=== PATIENT | female | born 1965 | race Caucasian/White ===

== ENCOUNTER 2019-01-02 00:33 | Day surgery (SDC) | payer OTHER ==
[~2019-01-02] VITALS: Ht 170.2 cm; Wt 77.1 kg
[~2019-01-02 00:33] MED LIST: CHOL10005 PO; PAR20 PO; VORT10TA PO
[2019-01-02] MEDS ORDERED: LIDOCAINE/SOD BICARB 8.4% SYR ID ONE (06:30)
[2019-01-02] MEDS ORDERED: NORMOSOL R SOLN(*) 1000 ML BAG 1,000 ML IV PRN (06:30)
[2019-01-02 06:34] VITALS: BP 130/58
[2019-01-02] MEDS ORDERED: LIDOCAINE MPF 1% 5 ML VIAL ONE (07:11)
[2019-01-02] MEDS ORDERED: PROPOFOL EMUL(*) 10MG/ML 20 ML 40 ML ONE (07:11)
[2019-01-02 07:41] VITALS: BP 106/55
[2019-01-02 07:45] VITALS: BP 103/61
--- NOTE | 2019-01-02 07:48 | Short(Outpt) Discharge Summary ---
Discharge Summary Reason for Hosp/Final Diag: (1) Encounter for screening colonoscopy Hospital Course & Plan: 53 yo f presented for screening colonoscopy. she tolerated the procedure well and there were no complications. repeat 10 yrs. she will be discharged home when criteria met. Departure Discharge to: Home Discharge Instructions Home Meds Reported Medications Cholecalciferol (Vitamin D3) (VITAMIN D3) 1,000 Unit Tablet, 1000 UNIT PO QDAY, TAB 12/19/18 Vortioxetine Hydrobromide (Brintellix) 10 Mg Tablet, 1 TAB PO DAILY 10/16/18 Diet: Regular Activity: As Tolerated Special Instructions: repeat colonoscopy in 10 yrs. JESUS BRUNO Jan 02, 2019 07:48
[2019-01-02 08:00] VITALS: BP 102/67
[2019-01-02 08:07] VITALS: BP 109/74
[2019-01-02 08:09] VITALS: BP 106/74
--- NOTE | 2019-01-02 13:22 | NUR ---
0741 PT REC'D IN [place] VIA CART, SBAR FROM Ana FRASER RN AND DR. MARIE. L LATERLA POSITION, BEL AT BEDSIDE, PT RESTING 0750 DR. BRUNO AT BEDSIDE, PT WAKING UP, VSS 0807 PT HALD DRESSED WHEN NURSE ENTERED ROOM, ORTHOSTATICS DONE, STABLE, ALLOWED TO COMPLETE DRESSING, IV REMOVED AT 0810, REASSESSED. UNREMARKABLE FOR CHANGES. D/C INSTRUCTIONS COVERED, WALKED TO VEHICLE OUTSIDE OF ER WITHOUT INCIDENT. DECLINED WC, STEADY ON FEET. DECLINED FOOD AND DRINK WHILE IN [place].
== END 2019-01-02 08:20 | disposition home or self-care (01) ==
LOC: OR 00:33
PROVIDERS: ATTEND Surgery
DX: Z12.11 Encounter for screening for malignant neoplasm of colon (principal)
CPT/HCPCS: 00812; 45378; J2001; J2704